=== PATIENT | male | born 1950 | race Caucasian/White ===

== ENCOUNTER 2021-10-29 11:03 | Emergency (ER) | payer MEDICARE, OTHER ==
[2021-10-29 14:30] LABS: BASOPHIL 0.2 % (0-2); EOSINOPHIL 0.2 % (0-7); HCT 44.2 % (42.0-52.0); HGB 14.8 g/dl (13.2-18.0); LYMPHOCYTE 12.3 % (15-48); MCH 31.4 pg (25.0-31.0); MCHC 33.5 g/dL (32.0-36.0); MCV 93.6 fL (78.0-100.0); MPV 10.4 fL (6.0-9.5); NRBC 0; PLT 130 K/uL (150-400); RBC 4.72 M/uL (4.70-6.00); RDW 11.9 % (11.5-14.0); WBC 12.9 K/uL (4.0-10.5)
[2021-10-29] MEDS ORDERED: AMOX TR-K CLV1 EAC4 PO (14:55)
== END 2021-10-29 16:01 | disposition home or self-care (01) ==
LOC: FER 11:03
PROVIDERS: Emergency Medicine
DX: M70.42 Prepatellar bursitis, left knee (principal); I69.354 Hemiplegia and hemiparesis following cerebral infarction affecting left non-dominant side; Z79.01 Long term (current) use of anticoagulants; Z91.040 Latex allergy status
CPT/HCPCS: 36415; 85025; 87070; 87077; 87186; 87205

== ENCOUNTER 2021-11-01 10:19 | Inpatient (IN) | payer MEDICARE, OTHER ==
[~2021-11-01] VITALS: Ht 180 cm; Wt 99.0 kg
[~2021-11-01 10:19] MED LIST: AMOX TR-K CLV1 EAC4 PO
[2021-11-01 11:24] LABS: BASOPHIL 0.4 % (0-2); EOSINOPHIL 0.2 % (0-7); HCT 45.4 % (42.0-52.0); HGB 15.1 g/dl (13.2-18.0); LYMPHOCYTE 14.7 % (15-48); MCH 30.7 pg (25.0-31.0); MCHC 33.3 g/dL (32.0-36.0); MCV 92.3 fL (78.0-100.0); MONOCYTE 7.5 % (0-12); MPV 10.7 fL (6.0-9.5); NEUTROPHIL 76.1 % (41-80); NRBC 0; PLT 188 K/uL (150-400); RBC 4.92 M/uL (4.70-6.00); RDW 11.7 % (11.5-14.0); WBC 10.2 K/uL (4.0-10.5)
[2021-11-01 11:37] LABS: BUN/CREAT RATIO (CALC) 21.3 RATIO; CREATININE 1.27 mg/dL (0.67-1.17); POTASSIUM 3.6 mmol/L (3.5-5.1)
[2021-11-01 11:57] LABS: LACTIC ACID 1.7 mmol/L (0.4-1.9)
[2021-11-01] MEDS ORDERED: LIPITOR20 MG PO (17:26)
[2021-11-01] MEDS ORDERED: TAMSULOSIN HCL0.4 MG PO (17:26)
[2021-11-01] MEDS ORDERED: WARFARIN SODIUM2 MG PO (17:27)
[2021-11-01] MEDS ORDERED: AMARYL2 MG PO (17:27)
[2021-11-01] MEDS ORDERED: COZAAR100 MG PO (17:29)
[2021-11-01] MEDS ORDERED: HCTZ12.5 MG PO (17:29)
[2021-11-01] MEDS ORDERED: LOSARTIN/HCTZ PO (17:31)
[2021-11-01] MEDS ORDERED: LOPRESSOR50 MG PO (17:32)
[2021-11-01] MEDS ORDERED: NORVASC5 MG PO (17:32)
[2021-11-01 17:57] LABS: INR 2.13 (0.9-1.2)
[2021-11-02 06:34] LABS: BASOPHIL 0.3 % (0-2); EOSINOPHIL 0.9 % (0-7); HCT 38.7 % (42.0-52.0); HGB 12.9 g/dl (13.2-18.0); LYMPHOCYTE 24.8 % (15-48); MCH 30.6 pg (25.0-31.0); MCHC 33.3 g/dL (32.0-36.0); MCV 91.9 fL (78.0-100.0); MONOCYTE 7.8 % (0-12); MPV 9.8 fL (6.0-9.5); NEUTROPHIL 65.9 % (41-80); NRBC 0; PLT 168 K/uL (150-400); RBC 4.21 M/uL (4.70-6.00); RDW 11.6 % (11.5-14.0); WBC 8.6 K/uL (4.0-10.5)
[2021-11-02 07:07] LABS: INR 2.36 (0.9-1.2); PROTHROMBIN TIME 24.9 SECONDS (11.8-13.4)
[2021-11-02 07:27] LABS: BUN/CREAT RATIO (CALC) 17.8 RATIO; C-REACTIVE PROTEIN 10.3 mg/dL (<=0.90); CREATININE 1.01 mg/dL (0.67-1.17); FOLIC ACID (SERUM) 14.8 ng/mL (8.6-58.9); MAGNESIUM 1.7 mg/dL (1.8-2.4); POTASSIUM 3.4 mmol/L (3.5-5.1)
--- NOTE | 2021-11-02 15:35 | NUR ---
1020 CALL LAB TO ASK ABOUT SCANNING OF THE FRESH FROZEN PLAZMA IT SAID THAT THE EXP. DATE HAD BEEN CHANGED FROM WHAT WAS ON THE BAG. YASIR VALLECILLO FROM THE LAB REPORTS THAT ONCE THE FFP HAS BEEN THAWED OUT THE EXP. DATE CHANGES THAT IT IS ONLY GOOD FOR 24 HOURS. THE SCANNING OF THE FFP HAD TO BE OVERRIDDEN. HAYDER BORGES RN AND MARTHA SMITH RN WHERE THE WITNESS TO THIS BEING OVERRIDDEN. 1511 A NEW DIABETIC CONSULT HAS BEEN SET UP VIA S[facility] OVALLE THE COORIDATOR OF THE PROGRAM WILL SET A THE ZOOM AND CALL THE NURSE THAT HAS PATIENT TOMMORROW TO GET THE I PAD AND SET UP THE MEETING.
[2021-11-03 06:36] LABS: BASOPHIL 0.3 % (0-2); EOSINOPHIL 0.9 % (0-7); HCT 36.3 % (42.0-52.0); HGB 11.9 g/dl (13.2-18.0); LYMPHOCYTE 23.2 % (15-48); MCH 30.9 pg (25.0-31.0); MCHC 32.8 g/dL (32.0-36.0); MCV 94.3 fL (78.0-100.0); MONOCYTE 8.4 % (0-12); MPV 10.1 fL (6.0-9.5); NRBC 0; PLT 162 K/uL (150-400); RBC 3.85 M/uL (4.70-6.00); RDW 11.7 % (11.5-14.0); WBC 8.7 K/uL (4.0-10.5)
[2021-11-03 06:52] LABS: INR 2.55 (0.9-1.2); PROTHROMBIN TIME 26.5 SECONDS (11.8-13.4)
[2021-11-03 07:34] LABS: BUN/CREAT RATIO (CALC) 18.2 RATIO; CREATININE 0.99 mg/dL (0.67-1.17); MAGNESIUM 1.9 mg/dL (1.8-2.4); POTASSIUM 3.8 mmol/L (3.5-5.1)
--- NOTE | 2021-11-03 11:56 | NUR ---
11/03/21 Mr. Boyer lives at home with his spouse. He uses a cane for ambulation. He also has access to a rw, wc, and 3in1. - Areferral was made to [facility] per patient choice for IV antibiotics. Waiting on PIC placement and f/up from [facility].
--- NOTE | 2021-11-03 13:42 | NUR ---
MIDLINE ORDERED PLACED, I WENT TO BEDSIDE AND DISCUSSED THE PROCEDURE WITH THE PATIENT. PATIENT AGREED TO HAVING MIDLINE PLACED. MIDLINE PLACED USING STERILE TECHNIQUE, NO DIFFICULTY, 1ML OF SQ LIDOCAINE USED TO NUMB THE INSERTION SITE. LEFT UPPER BASILIC VEIN ACCESSED WITH NEEDLE, BLOOD RETURN PRESENT, WIRE GUIDED INTO NEEDLE, NEEDLE RETRACTED, MIDLINE INTRODUCER PLACED OVER GUIDEWIRE, WIRE REMOVED, INTERNAL INTRODUCER REMOVED, BLOOD RETURN PRESENT, EXTENSION TUBING ATTACHED TO MIDLINE AND FLUSHED WITH NORMAL SALINE W/O ANY DIFFICULTY. STERILE DRESSING APPLIED. ISSUES WITH FLUSHING MIDLINE AFTER INSERTION, RE-DRESSED MIDLINE AND BLOOD RETURN NOTED AND ABLE TO FLUSH WITH 20ML NORMAL SALINE WITHOUT ANY DIFFICULTY.
--- NOTE | 2021-11-03 13:48 | NUR ---
11/03/21 A referral was made to [facility] for IV antibiotics. He has now chosen to get the antibiotics as an outpatient because the cost would be $519.. Report given to MS Mary RN. She will set up outpatient infusion.
[2021-11-03] MEDS ORDERED: DAPTOMYCIN350 MG IV (14:18)
[2021-11-03] MEDS ORDERED: HYDROCODON-ACE1 EAC6 PO (14:18)
[2021-11-07] MEDS ORDERED: METFORMIN HCL500 MG PO (11:44)
== END 2021-11-03 15:33 | disposition home health service (06) | DRG 501 ==
LOC: FER 10:19 → FMS 12:20
PROVIDERS: Emergency Medicine; Legal Medicine; ADMIT Internal Medicine
PROC: 0MBP0ZZ Excision of Left Knee Bursa and Ligament, Open Approach (ICD-10-PCS; 2021-11-02)
PROC: 30233L1 Transfusion of Nonautologous Fresh Plasma into Peripheral Vein, Percutaneous Approach (ICD-10-PCS; principal; 2021-11-02 14:00)
PROC: 05HY33Z Insertion of Infusion Device into Upper Vein, Percutaneous Approach (ICD-10-PCS; 2021-11-03)
DX: M71.162 Other infective bursitis, left knee (principal); L03.116 Cellulitis of left lower limb; N17.9 Acute kidney failure, unspecified; I48.20 Chronic atrial fibrillation, unspecified; B95.61 Methicillin susceptible Staphylococcus aureus infection as the cause of diseases classified elsewhere; B95.62 Methicillin resistant Staphylococcus aureus infection as the cause of diseases classified elsewhere; E11.65 Type 2 diabetes mellitus with hyperglycemia; D50.9 Iron deficiency anemia, unspecified; Z20.822 Contact with and (suspected) exposure to COVID-19; I69.344 Monoplegia of lower limb following cerebral infarction affecting left non-dominant side; I10 Essential (primary) hypertension; E78.5 Hyperlipidemia, unspecified; E87.6 Hypokalemia; E83.42 Hypomagnesemia; Z79.84 Long term (current) use of oral hypoglycemic drugs; Z79.899 Other long term (current) drug therapy; Z79.2 Long term (current) use of antibiotics; Z79.01 Long term (current) use of anticoagulants; Z91.040 Latex allergy status; Z83.3 Family history of diabetes mellitus; Z82.49 Family history of ischemic heart disease and other diseases of the circulatory system
CPT/HCPCS: 36415; 36430; 73564; 80048; 82607; 82746; 83036; 83540; 83550; 83605; 83735; 84145; 85025; 85610; 86140; 87040; 87070; 87075; 87077; 87186; 87205; 88305; 93005; C1751; J0295; J0697; J0878; J2250; J2405; J2704; J2795; J2916; J3010; J3260; J3475; J3480; J7030; J7120; P9017; U0002